=== PATIENT | female | born 1955 | race Caucasian/White ===

== ENCOUNTER 2018-11-09 16:57 | Emergency (ER) | payer OTHER, MEDICARE ==
[2018-11-09 18:13] VITALS: BP 173/85
--- NOTE | 2018-11-09 18:53 | EDM.PDOC ---
ED HPI GENERAL MEDICAL PROBLEM - General Chief Complaint: General Stated Complaint: Back Pains Time Seen by Provider: 11/09/18 17:00 Source of Information: Reports: Patient History Limitations: Reports: No Limitations - History of Present Illness INITIAL COMMENTS - FREE TEXT/NARRATIVE: Pt claims that she started having dull pain in her upper midback,which she claims started around 1:15 Pm today. Pt claims that she has been having feeling of racing heart during the same time. Pt claims that she did have midback pain, when she was down in [place], last week and went to chiropractor and had it manipulated, and the pain went away. IT came back today afternoon, but she feels like her heart races and also c/o shortness of breath. No chest pain. No pain in the legs. No wheezing. Pt claims that she has been on phentermine for weight loss. She has not taken it for past 3 days now. Onset: Today, Gradual Onset Date: 11/09/18 Onset Time: 13:15 Duration: Waxing/Waning Location: Reports: Back Quality: Reports: Ache Severity: Mild Improves with: Reports: None Worsens with: Reports: None Associated Symptoms: Reports: Shortness of Breath. Denies: Confusion, Chest Pain, Cough, Diaphoresis, Fever/Chills, Nausea/Vomiting, Rash, Seizure, Syncope , Weakness - Related Data Allergies Allergy/AdvReac Type Severity Reaction Status Date / Time erythromycin base Allergy Blisters Verified 08/07/16 10:21 [Erythromycin Base] mushroom Allergy Abdominal Verified 08/07/16 10:21 Cramps nickel Allergy Rash Verified 08/07/16 10:21 Penicillins Allergy Blisters Verified 08/07/16 10:21 tetanus and diphtheria Allergy Swelling Verified 08/07/16 10:21 toxoids [Tetanus&Diphtheria Toxoid] tetracycline [Tetracycline] Allergy Blisters Verified 08/07/16 10:21 Home Meds: Home Meds Aspirin [Children's Aspirin] 81 mg PO DAILY 05/03/13 [History] Clopidogrel Bisulfate [Clopidogrel] 75 mg PO DAILY 05/03/13 [History] Brimonidine Tartrate [Alphagan P 0.1% Ophth Soln] 1 drop EYEBOTH BID 02/27/15 [ History] Cetirizine [ZyrTEC] 10 mg PO DAILY PRN 02/27/15 [History] Dicyclomine HCl [Bentyl] 20 mg PO Q6HR PRN 02/27/15 [History] Nitroglycerin [Nitrostat] 0.4 mg SL ASDIRECTED PRN 02/27/15 [History] Ondansetron [Zofran] 4 mg PO Q4HR PRN 02/27/15 [History] Triamcinolone Acetonide [Triamcinolone Acetonide 0.5%] 1 applic TOP BID PRN [History] Fluticasone/Vilanterol [Breo Ellipta 100-25 MCG Inhalation Kit] 1 puff INH DAILY PRN 08/29/15 [History] Latanoprost 1 drop EYEBOTH BEDTIME 08/29/15 [History] Mupirocin 1 applic TOP TID 08/29/15 [History] Oxybutynin Chloride [Ditropan Xl] 20 mg PO DAILY 08/29/15 [History] Albuterol Sulfate 2.5 mg IH Q4H 09/18/15 [History] Temazepam 15 mg PO BEDTIME PRN 09/18/15 [History] traMADol HCl [Tramadol HCl] 25 mg PO DAILY PRN 09/18/15 [History] Past Medical History HEENT History: Reports: Impaired Vision Cardiovascular History: Reports: OK Respiratory History: Reports: COPD Neurological History: Reports: CVA - Past Surgical History HEENT Surgical History: Reports: Tonsillectomy GI Surgical History: Reports: Colon, Colonoscopy Social & Family History - Family History Cardiac: Reports: CAD, OK Endocrine/Metabolic: Reports: Diabetes, type II - Tobacco Use Smoking Status *Q: Former Smoker - Living Situation & Occupation Living situation: Reports: Occupation: Unemployed ED ROS GENERAL - Review of Systems Review Of Systems: See Below Constitutional: Denies: Fever, Chills, Fatigue, Diaphoresis HEENT: Denies: Rhinitis, Throat Pain Respiratory: Reports: Shortness of Breath. Denies: Pleuritic Chest Pain, Cough , Sputum Cardiovascular: Denies: Chest Pain, Lightheadedness GI/Abdominal: Denies: Abdominal Pain, Nausea, Vomiting Musculoskeletal: Reports: Back Pain. Denies: Joint Pain, Joint Swelling Skin: Denies: Bruising, Pruritis, Rash ED EXAM, GENERAL - Physical Exam Exam: See Below Exam Limited By: No Limitations General Appearance: Alert, WD/WN, No Apparent Distress Eye Exam: Bilateral Eye: EOMI, PERRL Ears: Normal External Exam, Normal Canal, Hearing Grossly Normal, Normal TMs Nose: Normal Inspection, Normal Mucosa, No Blood Throat/Mouth: Normal Inspection, Normal Lips, Normal Teeth, Normal Gums, Normal Oropharynx, Normal Voice, No Airway Compromise Head: Atraumatic, Normocephalic Neck: Normal Inspection, Supple, Non-Tender, Full Range of Motion Respiratory/Chest: No Respiratory Distress, Lungs Clear, Normal Breath Sounds, No Accessory Muscle Use, Chest Non-Tender Cardiovascular: Normal Peripheral Pulses, Regular Rate, Rhythm, No Edema, No Gallop, No JVD, No Murmur, No Rub GI/Abdominal: Normal Bowel Sounds, Soft, Non-Tender, No Organomegaly, No Distention, No Abnormal Bruit, No Mass Back Exam: Normal Inspection, Full Range of Motion, Paraspinal Tenderness (she is tender over the costovertebral joints in the interscapular region). No: Vertebral Tenderness Extremities: Normal Inspection, Normal Range of Motion, Non-Tender, Normal Capillary Refill, No Pedal Edema Neurological: Alert, Oriented, CN II-XII Intact, Normal Cognition, Normal Gait, Normal Reflexes, No Motor/Sensory Deficits Skin Exam: Warm, Intact EKG INTERPRETATION EKG Date: 11/09/18 Rhythm: NSR Rate (Beats/Min): 74 [place]: Normal P-Wave: Present QRS: Normal ST-T: Normal QT: Normal Course - Vital Signs Text/Narrative:: Pt's Vitals are stable other then her Blood pressure is 160/85mmhg. But patient has not taken her BP meds today. she is tender over the interscapular region to deep palpation, more so over the costovertebral joint in the interscapular region.She has had chronic back pain, she recently had chiropractor manipulation done last week. She has developed pain in her upper back today. Claims her heart races, but her heart rate is between 70-90s in the emergency room. She has not been short of breath in the emergency room and her SPO 2 is 97-99% on room air. Considering patient's history of OK in 2006 and also stroke in 2007. I did do cardiac workup on patient. Her EKG is in normal sinus rhythm with rate of 74bpm. Also her CBC and CMP are normal. Her troponin is negative. Pt reassured that she does not have cardiac injury,and this is more of mechanical back pain. Pt is concerned about her racing heart.There was no SVT and irregular rhythm noted on the radiation monitor. Her heart rate has been between 70-90bpm. Pt has been discharged with Holter monitoring to see if she has any abnormal rhythm.Considering her history of CAD and CVD, I have advised her to stop phentermine for now. Advised to followup with her primary care provider next week. Last Recorded V/S: Last Vital Signs Temp 98.4 F 11/09/18 18:12 Pulse 72 11/09/18 18:12 Resp 16 11/09/18 18:12 BP 173/85 H 11/09/18 18:12 Pulse Ox 99 11/09/18 18:12 - Orders/Labs/Meds Orders: Active Orders 24 hr Category Date Time Status EKG Documentation Completion [RC] ASDIRECTED Care 11/09/18 17:37 Active Chest 1V Frontal [CR] Stat Exams 11/09/18 17:37 Taken Labs: Laboratory Tests 11/09/18 11/09/18 Range/Units 18:30 18:30 WBC 8.8 (4.0-11.0) K/uL RBC 4.53 (3.80-5.80) M/uL Hgb 13.1 (11.5-16.5) g/dL Hct 40.7 (37.0-47.0) % MCV 90 (76-96) fL MCH 28.9 (27.0-32.0) pg MCHC 32.2 (31.0-35.0) g/dL RDW 13.2 (11.0-16.0) % Plt Count 183 (150-500) K/uL MPV 10.3 H (6.0-10.0) fL Neut % (Auto) 63.3 (45.0-70.0) % Lymph % (Auto) 27.3 (20.0-40.0) % [place] % (Auto) 5.7 (3.0-10.0) % Eos % (Auto) 3.2 (1.0-5.0) % Baso % (Auto) 0.5 (0.0-0.5) % Neut # (Auto) 5.55 (2.00-7.50) K/uL Lymph # (Auto) 2.39 (1.50-4.00) K/uL [place] # (Auto) 0.50 (0.20-0.80) K/uL Eos # (Auto) 0.28 (0.04-0.40) K/uL Baso # (Auto) 0.04 (0.02-0.10) K/uL Sodium 143 (136-145) mmol/L Potassium 3.9 (3.5-5.1) mmol/L Chloride 106 (98-107) mmol/L Carbon Dioxide 27.3 (21.0-32.0) mmol/L Anion Gap 13.6 (5.0-15.0) mmol/L BUN 23 (8-26) mg/dL Creatinine 1.02 (0.55-1.02) mg/dL Est Cr Clr Drug Dosing TNP Estimated GFR (MDRD) 55 L (>60) MLS/MIN BUN/Creatinine Ratio 22.5 (6-25) Glucose 103 H (74-100) mg/dL Calcium 8.9 (8.5-10.1) mg/dL Total Bilirubin 0.3 D (0.0-1.0) mg/dL AST 36 (15-37) U/L ALT 42 (12-78) U/L Alkaline Phosphatase 87 (46-116) U/L Troponin I < 0.017 (0.000-0.060) ng/mL Total Protein 7.5 (6.4-8.2) g/dL Albumin 3.6 (3.4-5.0) g/dL Globulin 3.9 (2.2-4.2) g/dL Albumin/Globulin Ratio 0.9 (0.8-2.0) Departure - Departure Time of Disposition: 19:30 Disposition: Home, Self-Care 01 Condition: Fair Clinical Impression: Mechanical back pain, Palpitations with regular cardiac rhythm - Discharge Information *PRESCRIPTION DRUG MONITORING PROGRAM REVIEWED*: Not Applicable *COPY OF PRESCRIPTION DRUG MONITORING REPORT IN PATIENT CAIRSA: Not Applicable Instructions: Acute Back Pain, Adult Referrals: PCP,None [Primary Care Provider] - Forms: ED Department Discharge Care Plan Goals: Wear holitor monitor as directed, leave on till it falls off. May use heat to back as needed for comfort. - Problem List & Annotations (1) Mechanical back pain SNOMED Code(s): 671799651, 605649108 Code(s): M54.9 - DORSALGIA, UNSPECIFIED Status: Acute (2) Palpitations with regular cardiac rhythm SNOMED Code(s): 644005711 Code(s): R00.2 - PALPITATIONS Status: Acute - Problem List Review Problem List Initiated/Reviewed/Updated: Yes - My Orders Last 24 Hours: My Active Orders 11/09/18 17:37 EKG Documentation Completion [RC] ASDIRECTED Chest 1V Frontal [CR] Stat - Assessment/Plan Last 24 Hours: My Active Orders 11/09/18 17:37 EKG Documentation Completion [RC] ASDIRECTED Chest 1V Frontal [CR] Stat Assessment:: Mechanical back pain Palpitation with normal rhythm Plan: Pt's Vitals are stable other then her Blood pressure is 160/85mmhg. But patient has not taken her BP meds today. she is tender over the interscapular region to deep palpation, more so over the costovertebral joint in the interscapular region.She has had chronic back pain, she recently had chiropractor manipulation done last week. She has developed pain in her upper back today. Claims her heart races, but her heart rate is between 70-90s in the emergency room. She has not been short of breath in the emergency room and her SPO 2 is 97-99% on room air. Considering patient's history of OK in 2006 and also stroke in 2007. I did do cardiac workup on patient. Her EKG is in normal sinus rhythm with rate of 74bpm. Also her CBC and CMP are normal. Her troponin is negative. Pt reassured that she does not have cardiac injury,and this is more of mechanical back pain. Pt is concerned about her racing heart.There was no SVT and irregular rhythm noted on the radiation monitor. Her heart rate has been between 70-90bpm. Pt has been discharged with Holter monitoring to see if she has any abnormal rhythm.Considering her history of CAD and CVD, I have advised her to stop phentermine for now. Advised to followup with her primary care provider next week.
--- NOTE | 2018-11-10 08:54 | CR ---
DATE OF SERVICE: 11/09/18 CLINICAL DATA: chest pain AP PORTABLE CHEST: Comparison is made to a prior exam dated 09/10/17. The heart size is normal. The lungs are clear. No pneumothorax. No pleural effusions. No evidence of acute intrathoracic disease. [id number] [facility]
== END 2018-11-09 19:32 | disposition home or self-care (01) ==
LOC: LB.ED 16:57
DX: M54.6 Pain in thoracic spine (principal); R00.2 Palpitations; I25.2 Old myocardial infarction; J44.9 Chronic obstructive pulmonary disease, unspecified; Z86.73 Personal history of transient ischemic attack (TIA), and cerebral infarction without residual deficits; Z79.82 Long term (current) use of aspirin; Z79.899 Other long term (current) drug therapy; Z88.0 Allergy status to penicillin; Z88.1 Allergy status to other antibiotic agents; Z88.7 Allergy status to serum and vaccine; Z91.09 Other allergy status, other than to drugs and biological substances
CPT/HCPCS: 0296T; 0297T; 36415; 71045; 80053; 84484; 85025; 93005; 99285

== ENCOUNTER 2020-09-18 12:55 | Emergency (ER) | payer MEDICARE ==
[2020-09-18] MEDS: Sodium Chloride 0.9% 10 ML Syringe FLUSH PRN (13:15)
--- NOTE | 2020-09-18 13:50 | EDM.PDOC ---
ED HPI GENERAL MEDICAL PROBLEM - General Chief Complaint: General Stated Complaint: SHORTNESS OF BREATH Time Seen by Provider: 09/18/20 13:00 Source of Information: Reports: Patient, EMS History Limitations: Reports: No Limitations - History of Present Illness INITIAL COMMENTS - FREE TEXT/NARRATIVE: patient with a h/o COPD, who was recently diagnosis with COVID, presented to the ER with a c/o worsening of SOB. Reports that she has been feeling more SOB and tight in the chest. She was started on nebs and zpack 4 days ago, on the same day of +ve COVID diagnosis. She also reports that her sat this morning was in low 82-85%. She reports that she used her nebs q4hrs yesterday but didn't help at all.. so she didn't use them as often today. She is quit smoking 10 yrs ago. No fever but some chills. Denies CP or palpitations. Reports loss of appetite and sense of taste. Patient also reports a h/o DM that is controlled Onset: Gradual Duration: Day(s): (2) Location: Reports: Chest (mild scattred b/l wheezes) Worsens with: Reports: Movement Associated Symptoms: Reports: Cough, Shortness of Breath. Denies: Chest Pain - Related Data Allergies Allergy/AdvReac Type Severity Reaction Status Date / Time erythromycin base Allergy Blisters Verified 08/07/16 10:21 [Erythromycin Base] mushroom Allergy Abdominal Verified 08/07/16 10:21 Cramps nickel Allergy Rash Verified 08/07/16 10:21 Penicillins Allergy Blisters Verified 08/07/16 10:21 tetanus and diphtheria Allergy Swelling Verified 08/07/16 10:21 toxoids [Tetanus&Diphtheria Toxoid] tetracycline [Tetracycline] Allergy Blisters Verified 08/07/16 10:21 Home Meds: Home Meds Aspirin [Children's Aspirin] 81 mg PO DAILY 05/03/13 [History] Clopidogrel Bisulfate [Clopidogrel] 75 mg PO DAILY 05/03/13 [History] Brimonidine Tartrate [Alphagan P 0.1% Ophth Soln] 1 drop EYEBOTH BID 02/27/15 [History] Cetirizine [ZyrTEC] 10 mg PO DAILY PRN 02/27/15 [History] Dicyclomine HCl [Bentyl] 20 mg PO Q6HR PRN 02/27/15 [History] Nitroglycerin [Nitrostat] 0.4 mg SL ASDIRECTED PRN 02/27/15 [History] Ondansetron [Zofran] 4 mg PO Q4HR PRN 02/27/15 [History] Triamcinolone Acetonide [Triamcinolone Acetonide 0.5%] 1 applic TOP BID PRN 02/27/15 [History] Fluticasone/Vilanterol [Breo Ellipta 100-25 MCG Inhalation Kit] 1 puff INH DAILY PRN 08/29/15 [History] Latanoprost 1 drop EYEBOTH BEDTIME 08/29/15 [History] Mupirocin 1 applic TOP TID 08/29/15 [History] Oxybutynin Chloride [Ditropan Xl] 20 mg PO DAILY 08/29/15 [History] Albuterol Sulfate 2.5 mg IH Q4H 09/18/15 [History] Temazepam 15 mg PO BEDTIME PRN 09/18/15 [History] traMADol HCl [Tramadol HCl] 25 mg PO DAILY PRN 09/18/15 [History] Past Medical History HEENT History: Reports: Impaired Vision Cardiovascular History: Reports: NE Respiratory History: Reports: COPD Neurological History: Reports: CVA - Past Surgical History HEENT Surgical History: Reports: Tonsillectomy GI Surgical History: Reports: Colon, Colonoscopy Social & Family History - Family History Cardiac: Reports: CAD, NE Endocrine/Metabolic: Reports: Diabetes, type II - Living Situation & Occupation Living situation: Reports: Occupation: Unemployed ED ROS GENERAL - Review of Systems Review Of Systems: See Below Constitutional: Reports: Chills, Malaise, Decreased Appetite HEENT: Reports: No Symptoms Respiratory: Reports: Shortness of Breath, Wheezing, Cough, Sputum. Denies: Hemoptysis Cardiovascular: Reports: Dyspnea on Exertion. Denies: Chest Pain Endocrine: Reports: No Symptoms GI/Abdominal: Reports: No Symptoms Musculoskeletal: Reports: No Symptoms Skin: Reports: No Symptoms Neurological: Reports: No Symptoms ED EXAM, GENERAL - Physical Exam Exam: See Below Exam Limited By: No Limitations General Appearance: Alert, WD/WN, Mild Distress Throat/Mouth: Normal Inspection Head: Atraumatic Respiratory/Chest: Chest Non-Tender, Rhonchi (b/l scattered), Wheezing Cardiovascular: Regular Rate, Rhythm GI/Abdominal: Normal Bowel Sounds, Soft, Non-Tender Back Exam: Normal Inspection Extremities: Normal Inspection, Normal Range of Motion, Non-Tender Neurological: Alert, Oriented, Normal Cognition, No Motor/Sensory Deficits #1 Interpretation EKG Date: 09/18/20 Rhythm: NSR Tavernier: Normal P-Wave: Present QRS: Normal ST-T: Normal QT: Normal Course - Vital Signs Last Recorded V/S: Last Vital Signs Temp 37.6 C 09/18/20 13:00 Pulse 94 09/18/20 13:00 Resp 16 09/18/20 13:00 BP 130/55 L 09/18/20 13:00 Pulse Ox 89 L 09/18/20 12:55 - Orders/Labs/Meds Orders: Active Orders 24 hr Category Date Time Status EKG Documentation Completion [RC] ASDIRECTED Care 09/18/20 13:07 Ordered RT Aerosol Therapy [RC] ASDIRECTED Care 09/18/20 14:05 Ordered Chest 1V Frontal [CR] Stat Exams 09/18/20 13:05 Ordered Chest wo Cont [CT] Stat Exams 09/18/20 14:14 Ordered CULTURE BLOOD [BC] Stat Lab 09/18/20 15:42 Ordered CULTURE BLOOD [BC] Stat Lab 09/18/20 15:43 Ordered Heparin Sodium/D5W [Heparin 25,000 Units in D5W 500 ML] Med 09/18/20 15:45 Ordered 25,000 units in 500 ml IV TITRATE Levofloxacin/Dextrose 5%-Water [Levaquin in D5W 500 MG/ Med 09/18/20 15:44 Ordered 100 ML] 500 mg Levofloxacin/Dextrose 5%-Water [Levaquin in D5W 500 MG/ 100 ML] 100 ml IV ONETIME Sodium Chloride 0.9% [Saline Flush] Med 09/18/20 13:05 Ordered 10 ml FLUSH ASDIRECTED PRN Vancomycin 1 gm Med 09/18/20 15:44 Ordered Sodium Chloride 0.9% [Normal Saline] 250 ml IV ONETIME Saline Lock Insert [OM.PC] Routine Oth 09/18/20 13:05 Ordered Medication Orders Heparin Sodium/Dextrose (Heparin 25,000 Units In D5w 500 Ml) 25,000 units in 500 mls @ 0 mls/hr IV TITRATE JANET; Protocol Levofloxacin/Dextrose 500 mg/ (Levofloxacin/Dextrose) 200 mls @ 100 mls/hr IV ONETIME ONE Stop: 09/18/20 17:43 Vancomycin HCl 1 gm/ Sodium (Chloride) 250 mls @ 167 mls/hr IV ONETIME ONE Stop: 09/18/20 17:13 Sodium Chloride (Sodium Chloride 0.9% 10 Ml Syringe) 10 ml FLUSH ASDIRECTED PRN PRN Reason: Keep Vein Open Last Admin: 09/18/20 13:15 Dose: 10 ml Documented by: GAIL Labs: Laboratory Tests 09/18/20 09/18/20 09/18/20 Range/Units 13:35 13:35 13:35 WBC 6.8 D (4.0-11.0) K/uL RBC 4.17 (3.80-5.80) M/uL Hgb 12.0 (11.5-16.5) g/dL Hct 37.3 (37.0-47.0) % MCV 89 (76-96) fL MCH 28.8 (27.0-32.0) pg MCHC 32.2 (31.0-35.0) g/dL RDW 14.2 (11.0-16.0) % Plt Count 95 L D (150-500) K/uL MPV 11.3 H (6.0-10.0) fL Neut % (Auto) 75.5 H (45.0-70.0) % Lymph % (Auto) 20.3 (20.0-40.0) % Tucker % (Auto) 4.1 (3.0-10.0) % Eos % (Auto) 0.1 L (1.0-5.0) % Baso % (Auto) 0.0 (0.0-0.5) % Neut # (Auto) 5.12 (2.00-7.50) K/uL Lymph # (Auto) 1.38 L (1.50-4.00) K/uL Tucker # (Auto) 0.28 (0.20-0.80) K/uL Eos # (Auto) 0.01 L (0.04-0.40) K/uL Baso # (Auto) 0.00 L (0.02-0.10) K/uL D-Dimer, Quantitative 2360 H (0-400) ng/mL Sodium 142 (136-145) mmol/L Potassium 4.1 (3.5-5.1) mmol/L Chloride 104 (98-107) mmol/L Carbon Dioxide 25.9 (21.0-32.0) mmol/L Anion Gap 16.2 H (5.0-15.0) mmol/L BUN 27 H (8-26) mg/dL Creatinine 1.68 H D (0.55-1.02) mg/dL Est Cr Clr Drug Dosing TNP Estimated GFR (MDRD) 31 L (>60) MLS/MIN BUN/Creatinine Ratio 16.1 (6-25) Glucose 142 H D (74-100) mg/dL Calcium 8.3 L (8.5-10.1) mg/dL Troponin I < 0.017 (0.000-0.060) ng/mL B-Natriuretic Peptide 71 D (0-125) pg/mL Meds: Medications Generic Name Dose Route Start Last Admin Trade Name Freq PRN Reason Stop Dose Admin Heparin Sodium/Dextrose 25,000 units in 500 mls @ 0 mls/hr 09/18/20 15:45 Heparin 25,000 Units In D5w 500 Ml IV TITRATE JANET Protocol 12 UNITS/KG/HR Levofloxacin/Dextrose 500 mg/ 200 mls @ 100 mls/hr 09/18/20 15:44 Levofloxacin/Dextrose IV 09/18/20 17:43 ONETIME ONE Vancomycin HCl 1 gm/ Sodium 250 mls @ 167 mls/hr 09/18/20 15:44 Chloride IV 09/18/20 17:13 ONETIME ONE Sodium Chloride 10 ml 09/18/20 13:05 09/18/20 13:15 Sodium Chloride 0.9% 10 Ml Syringe FLUSH 10 ml ASDIRECTED PRN Administration Keep Vein Open Discontinued Medications Generic Name Dose Route Start Last Admin Trade Name Freq PRN Reason Stop Dose Admin Albuterol 2.5 mg 09/18/20 14:05 Albuterol 0.083% 2.5 Mg/3 Ml Neb Soln NEB 09/18/20 14:06 ONETIME ONE - Re-Assessments/Exams Free Text/Narrative Re-Assessment/Exam: was connected to a monitor IV line was established connected to a monitor CXR - b/l haziness and infiltrates EKG - NSR, RRR Labs - significant for elevation in DDimer and worsening Cr/BUN, and low platelets count. ( Trop and BNP wnl ) Mx - O2 4 lit by NC - O2 up to 95%. Duoneb was given - felt better and can cough and clear sputum easier CT chest wo contrast was obtained - B/L MULTI-FOCAL ground - glass opacities on both side. small LLL effusion Cannot rule out PT due to low GFR. Unable to perform CT with contrast IV heparin was started - bolus and a drip blood Cx x2 Broad Spectrum Abx - IV vanc and Levaquin Given the severity of her pneumonia and multiple medical problems - I've consulted with the on-call in [place] who accepted the patient for a transfer to ICU Departure - Departure Time of Disposition: 15:56 Disposition: DC/Tfer to [facility] 02 Condition: Fair Clinical Impression: Pneumonia due to COVID-19 virus, Hypoxemia, Temporary low platelet count Pneumonia Qualifiers: Pneumonia type: due to unspecified organism Laterality: bilateral Lung location: lower lobe of lung Qualified Code(s): J18.9 - Pneumonia, unspecified organism Acute on chronic kidney failure Qualifiers: Acute renal failure type: unspecified Chronic kidney disease stage: stage 3 (moderate) Chronic kidney disease stage 3 subtype: stage 3b (GFR 30-44) Qualified Code(s): N17.9 - Acute kidney failure, unspecified; N18.32 - Chronic kidney disease, stage 3b - Discharge Information *PRESCRIPTION DRUG MONITORING PROGRAM REVIEWED*: Not Applicable *COPY OF PRESCRIPTION DRUG MONITORING REPORT IN PATIENT CARISA: Not Applicable Referrals: PCP,None [Primary Care Provider] - Forms: ED Department Discharge Sepsis Event Note (ED) - Focused Exam Vital Signs: Vital Signs Temp Pulse Resp BP Pulse Ox 09/18/20 13:00 37.6 C 94 16 130/55 L 09/18/20 12:55 37.6 C 94 20 130/55 L 89 L - Problem List & Annotations (1) Acute on chronic kidney failure SNOMED Code(s): 296155872 Code(s): N17.9 - ACUTE KIDNEY FAILURE, UNSPECIFIED; N18.9 - CHRONIC KIDNEY DISEASE, UNSPECIFIED Status: Acute Priority: Medium Current Visit: Yes Qualifiers: Acute renal failure type: unspecified Chronic kidney disease stage: stage 3 (moderate) Chronic kidney disease stage 3 subtype: stage 3b (GFR 30-44) Qualified Code(s): N17.9 - Acute kidney failure, unspecified; N18.32 - Chronic kidney disease, stage 3b (2) Hypoxemia SNOMED Code(s): 025149565 Code(s): R09.02 - HYPOXEMIA Status: Acute Priority: Medium Current Visit: Yes (3) Pneumonia SNOMED Code(s): 626128477 Code(s): J18.9 - PNEUMONIA, UNSPECIFIED ORGANISM Status: Acute Priority: Medium Current Visit: Yes Qualifiers: Pneumonia type: due to unspecified organism Laterality: bilateral Lung location: lower lobe of lung Qualified Code(s): J18.9 - Pneumonia, unspecified organism (4) Pneumonia due to COVID-19 virus SNOMED Code(s): 461912682914709909 Code(s): U07.1 - COVID-19; J12.82 - PNEUMONIA DUE TO CORONAVIRUS DISEASE 2019 Status: Acute Priority: Medium Current Visit: Yes (5) Temporary low platelet count SNOMED Code(s): 251023599 Code(s): D69.6 - THROMBOCYTOPENIA, UNSPECIFIED Status: Acute Priority: Medium Current Visit: Yes (6) COPD exacerbation SNOMED Code(s): 828179403 Code(s): J44.1 - CHRONIC OBSTRUCTIVE PULMONARY DISEASE W (ACUTE) EXACERBATION Status: Acute Priority: Medium Current Visit: Yes - Problem List Review Problem List Initiated/Reviewed/Updated: Yes - My Orders Last 24 Hours: My Active Orders 09/18/20 13:05 Chest 1V Frontal [CR] Stat Sodium Chloride 0.9% [Saline Flush] 10 ml FLUSH ASDIRECTED PRN Saline Lock Insert [OM.PC] Routine 09/18/20 13:07 EKG Documentation Completion [RC] ASDIRECTED 09/18/20 14:05 RT Aerosol Therapy [RC] ASDIRECTED 09/18/20 14:14 Chest wo Cont [CT] Stat 09/18/20 15:42 CULTURE BLOOD [BC] Stat 09/18/20 15:43 CULTURE BLOOD [BC] Stat 09/18/20 15:44 Levofloxacin/Dextrose 5%-Water [Levaquin in D5W 500 MG/100 ML] 500 mg Levofloxacin/Dextrose 5%-Water [Levaquin in D5W 500 MG/100 ML] 100 ml IV ONETIME Vancomycin 1 gm Sodium Chloride 0.9% [Normal Saline] 250 ml IV ONETIME 09/18/20 15:45 Heparin Sodium/D5W [Heparin 25,000 Units in D5W 500 ML] 25,000 units in 500 ml IV TITRATE - Assessment/Plan Last 24 Hours: My Active Orders 09/18/20 13:05 Chest 1V Frontal [CR] Stat Sodium Chloride 0.9% [Saline Flush] 10 ml FLUSH ASDIRECTED PRN Saline Lock Insert [OM.PC] Routine 09/18/20 13:07 EKG Documentation Completion [RC] ASDIRECTED 09/18/20 14:05 RT Aerosol Therapy [RC] ASDIRECTED 09/18/20 14:14 Chest wo Cont [CT] Stat 09/18/20 15:42 CULTURE BLOOD [BC] Stat 09/18/20 15:43 CULTURE BLOOD [BC] Stat 09/18/20 15:44 Levofloxacin/Dextrose 5%-Water [Levaquin in D5W 500 MG/100 ML] 500 mg Levofloxacin/Dextrose 5%-Water [Levaquin in D5W 500 MG/100 ML] 100 ml IV ONETIME Vancomycin 1 gm Sodium Chloride 0.9% [Normal Saline] 250 ml IV ONETIME 09/18/20 15:45 Heparin Sodium/D5W [Heparin 25,000 Units in D5W 500 ML] 25,000 units in 500 ml IV TITRATE Plan: - IV heparin bolus and drip per VTE protocol - IV Abx broad spectrum - O2 and nebs as needed - O2 monitor - transfer to higher level of care ICU bed
[2020-09-18] MEDS: Heparin Sodium 1,000 Units/ML 10 ML MDV ONE (16:13)
[2020-09-18] MEDS: Levofloxacin/Dextrose 5%-Water 100 ML IV ONE (16:13)
[2020-09-18] MEDS: Heparin Sodium/D5W 25,000 UNITS/500 ML BAG IV SCH (16:32)
[2020-09-18] MEDS: Albuterol 0.083% 2.5 MG/3 ML Neb Soln NEB ONE (16:32)
[2020-09-18] MEDS: Heparin Sodium 5,000 UNITS/0.5 ML Syringe IVPUSH ONE (16:38)
[2020-09-18] MEDS: Levofloxacin/Dextrose 5%-Water 500 MG in Levofloxacin/Dextrose 5%-Water 100 ML IV ONE (16:43)
[2020-09-18] MEDS: Sodium Chloride 0.9% 500 ML IV SCH (16:54)
[2020-09-18] MEDS ORDERED: Sodium Chloride 0.9% 50 ML IV SCH (17:00)
[2020-09-18 17:03] VITALS: BP 113/52; PULSE 87
--- NOTE | 2020-09-19 08:36 | CR ---
Date of Service: 09/18/20 Clinical Data: SOB + covid AP CHEST: Comparison is made to a prior exam dated 11/09/18. The heart size is normal. There are poorly defined infiltrates in the mid and lower lungs bilaterally. Consider viral pneumonia. No pneumothorax. There is slight blunting of the left costophrenic angle suggesting a small left pleural effusion. The exam is otherwise unchanged from the prior. [id number] [facility]
--- NOTE | 2020-09-19 08:43 | CT ---
Date of Service: 09/18/20 Clinical Data: SOB + high d-dimer UNENHANCED CHEST CT: Multislice acquisition through the chest without IV contrast was performed. No priors. There are extensive patchy ground-glass opacities noted within the right upper, right lower, and right middle lobes, as well as the left upper and left lower lobes. There are also small areas of consolidation in both costophrenic angles posteriorly. Findings most likely represent pneumonia. Consider viral pneumonia. No pneumothorax. Very small left pleural effusion. The heart size is normal. No pericardial effusion. No aortic aneurysm. There is an enlarged retrocaval pretracheal lymph node. There are multiple other nonenlarged mediastinal nodes. There is mild degenerative disk disease at multiple levels in the thoracic and upper lumbar spine. No other significant findings. IMPRESSION: Abnormal exam. See above. [id number] [facility]
== END 2020-09-18 17:24 ==
LOC: LB.ED 13:12
DX: U07.1 COVID-19 (principal); J12.82 Pneumonia due to coronavirus disease 2019; R09.02 Hypoxemia; E11.22 Type 2 diabetes mellitus with diabetic chronic kidney disease; N18.32 Chronic kidney disease, stage 3b; N17.9 Acute kidney failure, unspecified; D69.6 Thrombocytopenia, unspecified; J44.9 Chronic obstructive pulmonary disease, unspecified; I25.2 Old myocardial infarction; Z86.73 Personal history of transient ischemic attack (TIA), and cerebral infarction without residual deficits; Z87.891 Personal history of nicotine dependence; Z88.1 Allergy status to other antibiotic agents; Z91.018 Allergy to other foods; Z91.048 Other nonmedicinal substance allergy status; Z88.0 Allergy status to penicillin; Z88.7 Allergy status to serum and vaccine; Z79.82 Long term (current) use of aspirin; Z79.02 Long term (current) use of antithrombotics/antiplatelets; Z79.899 Other long term (current) drug therapy
CPT/HCPCS: 36415; 71045; 71250; 80048; 83880; 84484; 85025; 85379; 87040; 93005; 96365; 96366; 96368; 99283; 99285-25; A0425; A0429; J1644; J1644-GY; J1956; J3370; J7030; J7050

== ENCOUNTER 2021-06-08 11:28 | Emergency (ER) | payer MEDICAID, MEDICARE, OTHER ==
[2021-06-08] MEDS ORDERED: Aspirin 81 MG Tab.Chew PO SCH (11:50)
[2021-06-08] MEDS ORDERED: Nitroglycerin 0.4 MG Tab.SL SL ONE (11:50)
--- NOTE | 2021-06-08 12:15 | EDM.PDOC ---
ED HPI GENERAL MEDICAL PROBLEM - General Chief Complaint: Respiratory Problem Stated Complaint: HURTS TO BREATHE / RIGHT ARM PAIN Time Seen by Provider: 06/08/21 11:38 Source of Information: Reports: Patient History Limitations: Reports: No Limitations - History of Present Illness INITIAL COMMENTS - FREE TEXT/NARRATIVE: 65-year-old female presents to the ED for chest pain. Onset was acute 4 days ago. She was watching television and she started having pain. Patient locates the pain as chest tightness substernal that radiates to her right scapula she describes the radiated pain as a cold tingly sensation. She rates this as a 8/10 on the pain scale. Patient states that this feels exactly like her previous MS. Positive for: Nausea without vomiting, fatigue, shortness of breath. Negative for: Diaphoresis, trauma, syncope/near syncope, diarrhea/constipation, dark tarry stool, blood on stool, changes to urine color smell frequency volume, swollen red joints, rash, pedal edema. Patient now has a headache secondary to nitroglycerin administration x1 Right Shoulder Pain Score (Numeric/FACES): 7 - Related Data Allergies Allergy/AdvReac Type Severity Reaction Status Date / Time erythromycin base Allergy Blisters Verified 08/07/16 10:21 [Erythromycin Base] mushroom Allergy Abdominal Verified 08/07/16 10:21 Cramps nickel Allergy Rash Verified 08/07/16 10:21 Penicillins Allergy Blisters Verified 08/07/16 10:21 tetanus and diphtheria Allergy Swelling Verified 08/07/16 10:21 toxoids [Tetanus&Diphtheria Toxoid] tetracycline [Tetracycline] Allergy Blisters Verified 08/07/16 10:21 Home Meds: Home Meds Aspirin [Children's Aspirin] 81 mg PO DAILY 05/03/13 [History] Clopidogrel Bisulfate [Clopidogrel] 75 mg PO DAILY 05/03/13 [History] Brimonidine Tartrate [Alphagan P 0.1% Ophth Soln] 1 drop EYEBOTH BID 02/27/15 [History] Cetirizine [ZyrTEC] 10 mg PO DAILY PRN 02/27/15 [History] Dicyclomine HCl [Bentyl] 20 mg PO Q6HR PRN 02/27/15 [History] Nitroglycerin [Nitrostat] 0.4 mg SL ASDIRECTED PRN 02/27/15 [History] Ondansetron [Zofran] 4 mg PO Q4HR PRN 02/27/15 [History] Triamcinolone Acetonide [Triamcinolone Acetonide 0.5%] 1 applic TOP BID PRN 02/27/15 [History] Fluticasone/Vilanterol [Breo Ellipta 100-25 MCG Inhalation Kit] 1 puff INH DAILY PRN 08/29/15 [History] Latanoprost 1 drop EYEBOTH BEDTIME 08/29/15 [History] Mupirocin 1 applic TOP TID 08/29/15 [History] Oxybutynin Chloride [Ditropan Xl] 20 mg PO DAILY 08/29/15 [History] Albuterol Sulfate 2.5 mg IH Q4H 09/18/15 [History] Temazepam 15 mg PO BEDTIME PRN 09/18/15 [History] traMADol HCl [Tramadol HCl] 25 mg PO DAILY PRN 09/18/15 [History] predniSONE [Prednisone] 40 mg PO DAILY 4 Days #8 tablet 06/08/21 [Rx] Past Medical History HEENT History: Reports: Impaired Vision Other HEENT History: glasses Cardiovascular History: Reports: MS Respiratory History: Reports: COPD Other Respiratory History: COVID positive september 2020 Neurological History: Reports: CVA - Infectious Disease History Other Infectious Disease History: covid positive - Past Surgical History HEENT Surgical History: Reports: Tonsillectomy GI Surgical History: Reports: Colon, Colonoscopy Social & Family History - Family History Cardiac: Reports: CAD, MS Endocrine/Metabolic: Reports: Diabetes, type II - Tobacco Use Tobacco Use Comment: quit smoking 2011 - Caffeine Use Caffeine Use: Reports: None - Recreational Drug Use Recreational Drug Use: No - Living Situation & Occupation Living situation: Reports: Occupation: Unemployed ED ROS GENERAL - Review of Systems Review Of Systems: Comprehensive ROS is negative, except as noted in HPI. ED EXAM, GENERAL - Physical Exam Exam: See Below Free Text/Narrative:: ABC intact. No apparent distress. No obvious trauma. Speaking in full sentences. Alert and oriented x3, GCS 456. Exam Limited By: No Limitations General Appearance: Alert, WD/WN, No Apparent Distress Eye Exam: Bilateral Eye: EOMI, PERRL Throat/Mouth: Normal Voice, No Airway Compromise Head: Atraumatic, Normocephalic Respiratory/Chest: No Respiratory Distress, Lungs Clear, Normal Breath Sounds, No Accessory Muscle Use, Chest Non-Tender Cardiovascular: Normal Peripheral Pulses, Regular Rate, Rhythm, No Edema, No Gallop, No JVD, No Murmur, No Rub GI/Abdominal: Soft, Non-Tender, No Distention, No Mass Extremities: Normal Inspection, Normal Capillary Refill Neurological: Alert, Oriented, Normal Cognition Psychiatric: Normal Affect, Normal Mood Skin Exam: Warm, Dry, Normal Color #1 Interpretation EKG Date: 06/08/21 (Normal sinus rhythm without ectopy, no ST elevation, minor ST depression V1 V2 no evidence of STEMI) Course - Vital Signs Last Recorded V/S: Last Vital Signs Temp 98 F 06/08/21 12:11 Pulse 60 06/08/21 12:20 Resp 16 06/08/21 12:11 BP 125/64 06/08/21 12:20 Pulse Ox 98 06/08/21 12:11 - Orders/Labs/Meds Orders: Active Orders 24 hr Category Date Time Status CXR [Chest 1V Frontal] [CR] Stat Exams 06/08/21 12:03 Ordered Aspirin Med 06/08/21 11:50 Active 162 mg PO DAILY EKG 12 Lead [EK] Routine Ther 06/08/21 11:52 Ordered Medication Orders Aspirin (Aspirin 81 Mg Tab.Chew) 162 mg PO DAILY JANET Last Admin: 06/08/21 11:50 Dose: 162 mg Documented by: MARY Labs: Laboratory Tests 06/08/21 06/08/21 Range/Units 11:55 11:55 WBC 8.0 (4.0-11.0) K/uL RBC 4.65 (3.80-5.80) M/uL Hgb 13.6 (11.5-16.5) g/dL Hct 41.7 (37.0-47.0) % MCV 90 (76-96) fL MCH 29.2 (27.0-32.0) pg MCHC 32.6 (31.0-35.0) g/dL RDW 13.8 (11.0-16.0) % Plt Count 151 D (150-500) K/uL MPV 10.9 H (6.0-10.0) fL Neut % (Auto) 55.9 (45.0-70.0) % Lymph % (Auto) 32.5 (20.0-40.0) % Gooding % (Auto) 5.6 (3.0-10.0) % Eos % (Auto) 5.6 H (1.0-5.0) % Baso % (Auto) 0.4 (0.0-0.5) % Neut # (Auto) 4.45 (2.00-7.50) K/uL Lymph # (Auto) 2.59 (1.50-4.00) K/uL Gooding # (Auto) 0.45 (0.20-0.80) K/uL Eos # (Auto) 0.45 H (0.04-0.40) K/uL Baso # (Auto) 0.03 (0.02-0.10) K/uL Sodium 143 (136-145) mmol/L Potassium 4.2 (3.5-5.1) mmol/L Chloride 106 (98-107) mmol/L Carbon Dioxide 25.9 (21.0-32.0) mmol/L Anion Gap 15.3 H (5.0-15.0) mmol/L BUN 18 D (8-26) mg/dL Creatinine 1.08 H D (0.55-1.02) mg/dL Est Cr Clr Drug Dosing TNP Estimated GFR (MDRD) 51 L (>60) MLS/MIN BUN/Creatinine Ratio 16.7 (6-25) Glucose 118 H (74-100) mg/dL Calcium 9.3 (8.5-10.1) mg/dL Troponin I < 0.017 (0.000-0.060) ng/mL Meds: Medications Generic Name Dose Route Start Last Admin Trade Name Freq PRN Reason Stop Dose Admin Aspirin 162 mg 06/08/21 11:50 06/08/21 11:50 Aspirin 81 Mg Tab.Chew PO 162 mg DAILY JANET Administration Discontinued Medications Generic Name Dose Route Start Last Admin Trade Name Freq PRN Reason Stop Dose Admin Nitroglycerin 0.4 mg 06/08/21 11:50 06/08/21 11:50 Nitroglycerin 0.4 Mg Tab.Sl SL 06/08/21 11:51 0.4 mg ONETIME ONE Administration Departure - Departure Time of Disposition: 13:45 Disposition: Home, Self-Care 01 Condition: Undetermined Clinical Impression: COPD exacerbation - Discharge Information *PRESCRIPTION DRUG MONITORING PROGRAM REVIEWED*: No *COPY OF PRESCRIPTION DRUG MONITORING REPORT IN PATIENT CARISA: No (Chin Jones) Referrals: Tripp Kim MD [Primary Care Provider] - Forms: ED Department Discharge Sepsis Event Note (ED) - Evaluation Sepsis Screening Result: No Definite Risk - Focused Exam Vital Signs: Vital Signs Temp Pulse Resp BP BP Pulse Ox 06/08/21 12:20 60 125/64 06/08/21 12:11 98 F 61 16 150/70 H 98 06/08/21 11:55 164/79 H 06/08/21 11:50 169/80 H 06/08/21 11:36 98 F 80 16 185/83 H 96 - My Orders Last 24 Hours: My Active Orders 06/08/21 11:50 Aspirin 162 mg PO DAILY 06/08/21 11:52 EKG 12 Lead [EK] Routine 06/08/21 12:03 CXR [Chest 1V Frontal] [CR] Stat - Assessment/Plan Last 24 Hours: My Active Orders 06/08/21 11:50 Aspirin 162 mg PO DAILY 06/08/21 11:52 EKG 12 Lead [EK] Routine 06/08/21 12:03 CXR [Chest 1V Frontal] [CR] Stat Assessment:: 65-year-old female presents to the ED for chest pain. The work-up for chest pain in the emergency department is thus far negative (negative EKG, negative chest x-ray, negative troponin, negative D-dimer). Differential diagnosis of chest pain is broad and includes life-threatening etiologies such as acute coronary syndrome myocardial infarction, pulmonary embolism, acute aortic dissection, amongst others. Other causes may include pneumonia, pneumothorax, chest wall source, pericarditis, pleurisy, esophageal spasm etc. No serious etiology of chest pain has been detected today during this visit. The work-up included a chest x-ray, EKG, troponins CBC, BMP. Close follow-up with primary care provider is indicated should the pain continue, as further work-up may be performed. This was made clear to the patient who understands. Based on the patient's presentation, exam and history and the fact that she did not take her COPD medications this morning I believe her chest discomfort is most likely due to her COPD. Plan: 1. Chest pain 2. Shortness of breath 3. Nausea ABC, history, exam, chest x-ray, EKG, labs, aspirin 162 mg, nitroglycerin x1, DuoNeb x1, Solu-Medrol 125 IM, outpatient prescription for prednisone burst 4 days, patient education/shared decision making, all questions were answered to patient satisfaction, patient understood and agreed to treatment plan. Patient discharged in stable condition
[2021-06-08 12:24] VITALS: BP 125/64; PULSE 60
[2021-06-08] MEDS ORDERED: Albuterol/Ipratropium 3.0-0.5 MG/3 ML Neb Soln NEB ONE (12:50)
--- NOTE | 2021-06-08 13:06 | CR ---
Date of Service: 06/08/21 Clinical Data: chest pain PORTABLE CHEST: Comparison is made to a prior exam dated 09/18/20. The heart size is normal. There is very subtle ground-glass opacity in the right upper lung. The lungs are otherwise clear. No pneumothorax. No pleural effusions. No areas of consolidation. [id number] MTDD
[2021-06-08] MEDS ORDERED: methylPREDNISolone Sodium Succinate 125 MG/2 ML SDV IM ONE (13:28)
== END 2021-06-08 13:37 | disposition home or self-care (01) ==
LOC: LB.ED 11:28
DX: J44.1 Chronic obstructive pulmonary disease with (acute) exacerbation (principal); I25.2 Old myocardial infarction; Z88.1 Allergy status to other antibiotic agents; Z91.018 Allergy to other foods; Z88.0 Allergy status to penicillin; Z91.048 Other nonmedicinal substance allergy status; Z88.7 Allergy status to serum and vaccine; Z79.82 Long term (current) use of aspirin; Z86.73 Personal history of transient ischemic attack (TIA), and cerebral infarction without residual deficits; Z87.891 Personal history of nicotine dependence
CPT/HCPCS: 36415; 71045; 80048; 84484; 85025; 85379; 93005; 96372; 99285; A9270; J2930; J7620-GY

== ENCOUNTER 2022-09-18 14:48 | Emergency (ER) | payer MEDICARE ==
[2022-09-18 15:21] VITALS: BP 129/55; PULSE 76
[2022-09-19] MEDS: LORazepam 2 MG/ML SDV IVPUSH ONE (08:19)
== END 2022-09-18 15:45 | disposition home or self-care (01) ==
LOC: LB.ED 14:48
DX: S61.012A Laceration without foreign body of left thumb without damage to nail, initial encounter (principal); I25.2 Old myocardial infarction; J44.9 Chronic obstructive pulmonary disease, unspecified; Z88.8 Allergy status to other drugs, medicaments and biological substances; Z88.1 Allergy status to other antibiotic agents; Z88.7 Allergy status to serum and vaccine; Z79.82 Long term (current) use of aspirin; Z79.51 Long term (current) use of inhaled steroids; Z91.048 Other nonmedicinal substance allergy status; Z79.899 Other long term (current) drug therapy; Z86.16 Personal history of COVID-19; W26.0XXA Contact with knife, initial encounter; Y92.009 Unspecified place in unspecified non-institutional (private) residence as the place of occurrence of the external cause
CPT/HCPCS: 12001; 99282

== ENCOUNTER 2023-09-25 18:24 | Emergency (ER) | payer MEDICARE ==
[2023-09-25 18:53] LABS: BASOPHILS ABSOLUTE AUTO 0.03 K/uL (0.02-0.10); BASOPHILS PERCENT AUTO 0.3 % (0.0-0.5); EOSINOPHILS ABSOLUTE AUTO 0.38 K/uL (0.04-0.40); EOSINOPHILS PERCENT AUTO 3.7 % (1.0-5.0); HEMATOCRIT 43.1 % (37.0-47.0); HEMOGLOBIN 13.9 g/dL (11.5-16.5); LYMPHOCYTES ABSOLUTE AUTO 3.11 K/uL (1.50-4.00); MEAN CORPUSCULAR HGB CONC 32.3 g/dL (31.0-35.0); MEAN CORPUSCULAR VOLUME 90 fL (76-96); MEAN PLATELET VOLUME 11.1 fL (6.0-10.0); MONOCYTES ABSOLUTE AUTO 0.63 K/uL (0.20-0.80); MONOCYTES PERCENT AUTO 6.1 % (3.0-10.0); NEUTROPHILS PERCENT AUTO 59.9 % (45.0-70.0); PLATELET COUNT,PLT 154 K/uL (150-500); RED CELL DISTRIBUTION WIDTH 13.4 % (11.0-16.0); WHITE BLOOD CELL COUNT,WBC 10.4 K/uL (4.0-11.0)
[2023-09-25 19:05] LABS: A/G RATIO 0.9 (0.8-2.0); ALBUMIN 3.7 g/dL (3.4-5.0); ANION GAP 11.4 mmol/L (5.0-15.0); BILIRUBIN TOTAL 0.6 mg/dL (0.0-1.0); BUN/CREATININE RATIO 13.5 (6-25); CARBON DIOXIDE,CO2 29.7 mmol/L (21.0-32.0); CREATININE 1.11 mg/dL (0.55-1.02); EST CRCL DRUG DOSING (CG) 47.3 mL/min; POTASSIUM,K 4.1 mmol/L (3.5-5.1); PROTEIN TOTAL,TP 7.6 g/dL (6.4-8.2)
[2023-09-25 19:08] LABS: PROTHROMBIN TIME 10.3 sec (9.0-11.5)
[2023-09-25 19:58] VITALS: BP 144/64; PULSE 61
== END 2023-09-25 19:30 | disposition home or self-care (01) ==
LOC: LB.ED 18:27
DX: R42 Dizziness and giddiness (principal); T42.6X5A Adverse effect of other antiepileptic and sedative-hypnotic drugs, initial encounter; I25.2 Old myocardial infarction; J44.9 Chronic obstructive pulmonary disease, unspecified; Z86.16 Personal history of COVID-19; E11.9 Type 2 diabetes mellitus without complications; Z86.73 Personal history of transient ischemic attack (TIA), and cerebral infarction without residual deficits; Z79.82 Long term (current) use of aspirin; Z79.02 Long term (current) use of antithrombotics/antiplatelets; Z88.1 Allergy status to other antibiotic agents; Z91.018 Allergy to other foods; Z91.048 Other nonmedicinal substance allergy status; Z88.0 Allergy status to penicillin; Z88.7 Allergy status to serum and vaccine; Z79.899 Other long term (current) drug therapy
CPT/HCPCS: 36415; 70450; 80053; 85025; 85610; 85730; 86140; 99284

== ENCOUNTER 2023-12-08 23:20 | Emergency (ER) | payer MEDICARE, OTHER ==
[2023-12-09 00:14] VITALS: BP 116/92; PULSE 75
== END 2023-12-09 00:03 | disposition home or self-care (01) ==
LOC: LB.ED 23:20
DX: S61.213A Laceration without foreign body of left middle finger without damage to nail, initial encounter (principal); J44.9 Chronic obstructive pulmonary disease, unspecified; I25.2 Old myocardial infarction; E11.9 Type 2 diabetes mellitus without complications; K21.9 Gastro-esophageal reflux disease without esophagitis; Z86.73 Personal history of transient ischemic attack (TIA), and cerebral infarction without residual deficits; Z79.02 Long term (current) use of antithrombotics/antiplatelets; Z79.899 Other long term (current) drug therapy; Z88.1 Allergy status to other antibiotic agents; Z88.0 Allergy status to penicillin; Z88.7 Allergy status to serum and vaccine; Z91.018 Allergy to other foods; Z91.048 Other nonmedicinal substance allergy status; W26.8XXA Contact with other sharp object(s), not elsewhere classified, initial encounter
CPT/HCPCS: 12001; 99282; 99283